=== PATIENT | male | born 1955 | race Caucasian/White ===

== ENCOUNTER 2019-08-19 10:57 | Outpatient (CLI) | payer OTHER, SELFPAY ==
--- NOTE | 2019-08-19 11:07 | XR_ITS ---
WS: [id number] XR shoulder RT min 2V* [id number] REASON FOR EXAM: NECK SHOULDER PAIN FINDINGS: Hypertrophy of the acromioclavicular joint. The clavicle show no definite fractures. The glenoid humeral articulations were normal. XR/XR shoulder RT min 2V* [id number] IMPRESSION: Degenerated changes of the acromioclavicular joint.
--- NOTE | 2019-08-19 11:07 | XR_ITS ---
WS: [id number] XR shoulder LT min 2V* [id number] REASON FOR EXAM: NECK SHOULDER PAIN FINDINGS: Widening of the acromioclavicular joint with spurring. The glenoid humeral articulation is normal. The clavicle shows no fractures. The scapula body was normal. XR/XR shoulder LT min 2V* [id number] IMPRESSION: Grade 1 acromioclavicular separation with spurring off the clavicle.
--- NOTE | 2019-08-19 11:07 | XR_ITS ---
WS: [id number] XR cervical spine 3V* [id number] REASON FOR EXAM: NECK SHOULDER PAIN FINDINGS: Degenerated changes of the joints of L[place]ch[place]. In the lateral projection there is degenerate disc changes C3-4, C4-5, C5-C6, C6-7. The odontoid process was normal. Along the posterior cervical vertebra C4-5 C5-C6 C6-7 there is spurring. XR/XR cervical spine 3V* [id number] IMPRESSION: Multilevel disc degenerative changes. Cervical spondylosis C4-C7.
== END 2019-08-19 10:58 | disposition home or self-care (01) ==
LOC: RAD 11:00
PROVIDERS: Visit Provider Emergency Medicine
DX: S43.102A Unspecified dislocation of left acromioclavicular joint, initial encounter (principal); X58.XXXA Exposure to other specified factors, initial encounter; M47.812 Spondylosis without myelopathy or radiculopathy, cervical region
CPT/HCPCS: 72040; 73030

== ENCOUNTER 2023-10-12 07:36 | Outpatient (CLI) | payer MEDICARE, SELFPAY ==
--- NOTE | 2023-10-12 07:44 | MR_ITS ---
WS: [id number] MRI CERVICAL SPINE NONCONTRAST TECHNIQUE: Sagittal T1, T2 and STIR imaging. Axial T2, gradient, and fiesta imaging. CLINICAL INFORMATION: CERVICAL RADICULOPATHY COMPARISON: None. FINDINGS: Straightening of the normal cervical lordosis. Moderate spondylitic changes. Multilevel mild to moder ate central canal stenosis with disc osteophyte protrusions C3-C6. C2-C3: Mild facet arthropathy. Mild LEFT greater than RIGHT foraminal narrowing. C3-C4: LEFT paracentral disc osteophyte protrusion with indentation of the LEFT ventral cervical cord . Moderate central canal stenosis. Severe LEFT and mild RIGHT bony foraminal narrowing. C4-C5: Disc osteophyte complex with moderate central canal stenosis. Moderate facet arthropathy. Naomi re RIGHT and moderate LEFT bony foraminal narrowing. C5-C6: Central and LEFT paracentral disc osteophyte complex with indentation of the cervical cord. Mi ld to moderate central canal stenosis. Severe LEFT and mild RIGHT bony foraminal narrowing. Moderate facet arthropathy. C6-C7: Shallow central disc osteophyte protrusion with slight indentation of the cervical cord. Mild central canal stenosis. Moderate LEFT and no significant RIGHT bony foraminal narrowing. C7-T1: Tiny shallow central protrusion. Moderate LEFT and no significant RIGHT bony foraminal narrowi ng. Shallow central protrusions in the upper thoracic spine partially visualized. Visualized brain stem structures: Normal. Prevertebral soft tissues: Normal. IMPRESSION: 1. Straightening of the normal cervical arteries with moderate spondylitic changes. 2. Disc osteophyte protrusions with central canal stenosis and indentation of the cervical cord at L EFT C3-C4, central C4-C5, central and LEFT paracentral C5-C6 and LEFT paracentral C6-C7. 3. Moderate central canal stenosis C3-C4 C4-C5 and C5-C6. Mild central canal stenosis C6-C7. 4. Moderate to severe multilevel bony foraminal narrowing worse at LEFT C3-C4, RIGHT C4-C5, LEFT C5- C6, and LEFT C6-C7.
--- NOTE | 2023-10-12 07:44 | MR_ITS ---
WS: [id number] MRI LUMBAR SPINE NONCONTRAST TECHNIQUE: Sagittal T1, T2 and STIR imaging. Axial T1 and T2 imaging. CLINICAL INFORMATION: LUMBAR POST LAMINECTOMY SYNDROME/DDD COMPARISON: None. FINDINGS: Mild lumbar curve. No acute compression. Disc desiccation worse at L5-S1. Incidental hemangioma L5 ve rtebral body. Prior RIGHT hemilaminectomy L4-L5. L1-L2: Mild facet arthropathy. Spinal canal and foramina are patent. L2-L3: Mild annular bulging. Moderate facet arthropathy. LEFT foraminal protrusion with mild LEFT for aminal narrowing. RIGHT foramen is patent. Moderate facet arthropathy. L3-L4: Mild annular bulging. Slight narrowing LEFT subarticular recess with impingement traversing LE FT L4 nerve root. Mild LEFT foraminal narrowing. Moderate facet arthropathy. L4-L5: Mild annular bulging with narrowing of the LEFT greater than RIGHT subarticular recess. Prior RIGHT hemilaminectomy. Spinal canal and foramen are patent. Moderate facet arthropathy. L5-S1: Disc desiccation with mild disc bulging. Shallow central protrusion with slight contact of the traversing S1 nerve roots. Spinal canal is patent. Mild bilateral foraminal narrowing. Moderate face t arthropathy. Visualized pelvic bony structures: Normal. Paravertebral soft tissues: Normal. Mild central canal stenosis in the cervical spine on lighting engineering technician imaging with small disc osteophyte protrus ions worse C3-C4 C5-C6 and C6-C7. Small disc protrusions in the thoracic spine worse at T7-T8. IMPRESSION: 1. Mild lumbar curve. No acute compression. No high-grade central canal stenosis. 2. Mild annular bulging L3-4 with slight impingement of the LEFT subarticular recess and traversing LEFT L4 nerve root. Mild LEFT L3-4 foraminal narrowing. 3. Annular bulging L4-5 with slight impingement traversing LEFT L5 nerve root in the subarticular re cess. Prior RIGHT hemilaminectomy at this level. 4. Shallow central disc protrusion L5-S1 with slight contact of the traversing S1 nerve roots bilate rally. Mild bilateral foraminal narrowing at this level. 5. Moderate facet arthropathy L3-L5. 6. Mild central canal stenosis in the cervical spine on the lighting engineering technician imaging described above. This coul d be further evaluated with cervical spine MRI.
== END 2023-10-12 07:37 | disposition home or self-care (01) ==
LOC: RAD 07:37
PROVIDERS: Visit Provider General Practice
DX: M48.02 Spinal stenosis, cervical region (principal); M54.17 Radiculopathy, lumbosacral region; M48.061 Spinal stenosis, lumbar region without neurogenic claudication; M51.27 Other intervertebral disc displacement, lumbosacral region
CPT/HCPCS: 72141; 72148